=== PATIENT | male | born 1990 ===

== ENCOUNTER 2017-01-07 18:16 | Emergency (ER) | payer OTHER ==
[2017-01-07 18:25] VITALS: BP 122/83
[2017-01-07] MEDS ORDERED: Ibuprofen TAB* 600 MG PO ONE (18:50)
--- NOTE | 2017-01-07 18:50 | UC ---
UC Dental HPI - HPI Summary HPI Summary: pain and swelling left wisdom tooth--- - History of Current Complaint Chief Complaint: UCDentalProblem Stated Complaint: INFECTED MOUTH Time Seen by Provider: 01/07/17 18:44 Hx Obtained From: Patient Onset/Duration: Sudden Onset, Lasting Days - 2, Still Present Severity: Moderate Pain Intensity: 8 Pain Scale Used: 0-10 Numeric - 8 Aggravating: Chewing Alleviating: Nothing Related History: Swelling - Allergies/Home Medications Allergies/Adverse Reactions: Allergies Allergy/AdvReac Type Severity Reaction Status Date / Time No Known Allergies Allergy Verified 01/07/17 18:25 Home Medications: Home Medications Ibuprofen TAB* [Advil TAB*] 1 cap PO TID 01/07/17 [History Confirmed 01/07/17] PMH/Surg Hx/FS Hx/Imm Hx Previously Healthy: Yes - Surgical History Surgical History: None - Family History Known Family History: Positive: None - Social History Occupation: Employed Full-time Lives: With Family Alcohol Use: Occasionally Substance Use Type: None Smoking Status (MU): Never Smoked Tobacco Review of Systems Constitutional: Negative Skin: Negative Eyes: Negative ENT: Dental Pain - left bottom 3rd molar Respiratory: Negative Cardiovascular: Negative Gastrointestinal: Negative Genitourinary: Negative Motor: Negative Neurovascular: Negative Musculoskeletal: Negative Neurological: Negative Psychological: Negative All Other Systems Reviewed And Are Negative: Yes Physical Exam Triage Information Reviewed: Yes Appearance: Well-Appearing, Well-Nourished, Pain Distress Vital Signs: Initial Vital Signs Temp 97.9 F 01/07/17 18:20 Pulse 67 01/07/17 18:20 Resp 18 01/07/17 18:20 BP 122/83 01/07/17 18:20 Pulse Ox 99 01/07/17 18:20 Vital Signs Reviewed: Yes Eye Exam: Normal Eyes: Positive: Conjunctiva Clear ENT Exam: Normal ENT: Positive: Normal ENT inspection, Hearing grossly normal, Pharynx normal, TMs normal. Negative: Nasal congestion, Nasal drainage, Trismus, Muffled/ hoarse voice Dental Exam: Normal Dental: Positive: Percussion Tenderness @ - left lower 3rd molar, Abscess @ Neck exam: Normal Neck: Positive: Supple Respiratory Exam: Normal Respiratory: Positive: Chest non-tender, No respiratory distress, No accessory muscle use Cardiovascular Exam: Normal Cardiovascular: Positive: RRR, Pulses Normal, Brisk Capillary Refill Musculoskeletal Exam: Normal Musculoskeletal: Positive: Strength Intact, ROM Intact Neurological Exam: Normal Neurological: Positive: Alert, Muscle Tone Normal Psychological Exam: Normal Skin Exam: Normal Dental Complaint Course/Dx - Course Course Of Treatment: ibuprofen, tylenol, topical analgesic, follow with dentist - Differential Dx/Diagnosis Differential Diagnosis/Dx: Dental Abscess, Fractured Tooth, Odontogenic Pain, Pharyngitis Provider Diagnoses: left lower dental pain Discharge - Discharge Plan Condition: Stable Disposition: HOME Prescriptions: Amoxicillin PO (*) [Amoxicillin 500 MG CAP*] 500 mg PO TID #29 cap Ibuprofen TAB* [Motrin TAB* 600 MG] 600 mg PO Q6H PRN #30 tab PRN Reason: Pain Patient Education Materials: Dental Abscess (ED), Toothache (ED) Referrals: No Primary Care Phys,NOPCP [Primary Care Provider] - Additional Instructions: Follow with you dentist when you return home or return here if needed
[2017-01-07] MEDS ORDERED: Amoxicillin PO (*) 500 MG CAP PO ONE (18:51)
== END 2017-01-07 19:13 | disposition home or self-care (01) ==
LOC: UCEAST 18:16
DX: K08.89 Other specified disorders of teeth and supporting structures (principal)
CPT/HCPCS: 99202; A9270-GY; G0463

== ENCOUNTER 2017-01-08 07:42 | Emergency (ER) | payer OTHER ==
[2017-01-08 07:50] VITALS: BP 117/78
[2017-01-08] MEDS ORDERED: Amoxicillin/Clavulanate TAB* 875 MG PO ONE (08:19)
[2017-01-08] MEDS ORDERED: predniSONE TAB* 20 MG PO ONE (08:19)
[2017-01-08] MEDS ORDERED: Acetaminop/Codeine 30 MG TAB* 1 TAB (300 MG/30 MG) PO ONE (08:19)
--- NOTE | 2017-01-08 14:10 | UC ---
Kenny Garcia SooYoung, scribed for Patricia Ward DO on 01/08/17 at 0801 . Dental HPI - HPI Summary HPI Summary: A 26 y/o M presents to [facility] [place] with c/o dental abscess of L bottom wisdom tooth onset 3 days ago. Associated sx: swelling onset this AM, mild dysphagia. Denies nausea, abd pain, dizziness, dyspnea, swelling of lips/tongue/throat, rash. Rates pain as 5/10 in room. Pt was seen last night at [facility] and given an ABX. He has yet to fill the Rx. Pt and friend were concerned after he woke up and it was swollen today and he was having difficulty opening his mouth. 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 - Onset/Duration: Gradual Onset, Lasting Days, Still Present Severity: Moderate Pain Intensity: 5 Pain Scale Used: 0-10 Numeric Aggravating: Chewing Alleviating: Nothing Related History: Swelling - Allergies/Home Medications Allergies/Adverse Reactions: Allergies Allergy/AdvReac Type Severity Reaction Status Date / Time No Known Allergies Allergy Verified 01/08/17 07:50 PMH/Surg Hx/FS Hx/Imm Hx Previously Healthy: Yes Cardiovascular History: Other Other Cardiovascular History: neg: HTN Respiratory History: Other Other Respiratory History: neg: COPD - Surgical History Surgical History: None - Family History Known Family History: Positive: None Negative: Cardiac Disease, Hypertension, Diabetes - Social History Occupation: Unemployed Lives: Alone Alcohol Use: Occasionally Substance Use Type: None Smoking Status (MU): Never Smoked Tobacco Review of Systems Constitutional: Negative Skin: Negative Eyes: Negative ENT: Dental Pain - with swelling, Other - PT HAD MILD ST A COUPLE OF DAYS AGO THAT RESOLVED Respiratory: Negative Cardiovascular: Negative Gastrointestinal: Negative Genitourinary: Negative Motor: Negative Neurovascular: Negative Musculoskeletal: Negative Neurological: Negative Psychological: Negative All Other Systems Reviewed And Are Negative: Yes Physical Exam Triage Information Reviewed: Yes Appearance: Well-Appearing, No Pain Distress, Well-Nourished Vital Signs: Initial Vital Signs Pulse 84 01/08/17 07:43 Resp 20 01/08/17 07:43 BP 117/78 01/08/17 07:43 Pulse Ox 99 01/08/17 07:43 Vital Signs Reviewed: Yes Eyes: Positive: Conjunctiva Clear. Negative: Discharge ENT: Positive: Hearing grossly normal, Trismus, Other: - tissues under midline chin sofft supple, neg for erythma, neg for calor. Negative: Muffled/hoarse voice Dental: Positive: Other: - swelling over mandible over the L lower wisdom tooth , no drainage, dental abscess palpated over 17 Neck exam: Normal Neck: Positive: Supple, No Lymphadenopathy, Other: - no midline swelling over the mandible Respiratory: Positive: Lungs clear, Normal breath sounds, No respiratory distress, No accessory muscle use Cardiovascular: Positive: RRR, No Murmur Musculoskeletal Exam: Normal Neurological: Positive: Alert, Muscle Tone Normal Psychological Exam: Normal Psychological: Positive: Age Appropriate Behavior Skin Exam: Normal - warm, dry, nml Dental Complaint Course/Dx - Course Course Of Treatment: Medications reviewed. Normal BP reading and no follow-up instructions required. Discussed at length with pt and on how and when to take the prescriptions. Pt declined pain medication at [facility] [place], will pick-up as Rx. D/C home with Tylenol/Codeine, Augmentin and Prednisone. - Differential Dx/Diagnosis Differential Diagnosis/Dx: Dental Abscess, Dental Caries, TMJ Syndrome Provider Diagnoses: dental abscess Discharge - Discharge Plan Condition: Stable Disposition: HOME Prescriptions: Acetaminop/Codeine 30 MG TAB* [Tylenol/Codeine 30 MG TAB*] 1 tab PO Q6H PRN #12 tab MDD 4 tabs PRN Reason: Pain (Dental) Amoxicillin/Clavulanate TAB* [Augmentin TAB 875*] 875 mg PO BID #19 tab predniSONE TAB* [Deltasone TAB*] 40 mg PO DAILY #8 tab Patient Education Materials: Dental Abscess (ED) Referrals: No Primary Care Phys,NOPCP [Primary Care Provider] - [facility] [Outside] Additional Instructions: AUGMENTIN: Augmentin is a mixture of amoxicillin and clavulanate. Amoxicillin is a member of the penicillin family. It covers the germs likely to cause ear, bronchial, and urinary infections better than plain penicillin. The addition of clavulanate allows it to cover staph infections of the skin, as well as resistant cases of ear and sinus infections. Your physician has chosen Augmentin for you because of the special nature of your situation. Augmentin is best taken with meals. Nausea after taking the medication is rare, but can occur. Diarrhea can occur, particularly in small children. Vaginal yeast infections, and oral thrush in infants are also common. Contact your physician if these problems occur. Allergy to penicillins is common. If you have had an allergic reaction to any drug of the penicillin family, you should never take any other penicillin. Notify your doctor at once if you develop hives, shortness of breath, swelling, or faintness. ANYTIME YOU TAKE AN ANTIBIOTIC, IT IS IMPORTANT TO REPLENISH THE BODY'S SUPPLY OF "GOOD BACTERIA." YOU CAN GET GOOD BACTERIA FROM HIGH QUALITY CULTURED FOODS SUCH LOCAL YOGURT, SOUR KRAUT, ARIELLE CHELI, NATURALLY FERMENTED PICKLES AND PROBIOTIC DRINKS. YOU CAN ALSO GET GOOD BACTERIA FROM A PROBIOTIC SUPPLEMENT. CORTICOSTEROID MEDICATION: You have been given a medicine of the cortisone class. This medication is used to control inflammation or allergy. It is usually only given for a short period of time, until the acute process subsides. There are usually no side effects from short-term use of cortisone-like medications. Some persons feel an increased sense of well-being and are not sleepy at bedtime. Long-term use of cortisone medications is best avoided, unless required for a severe condition. If your condition does not remit, or relapses after the course of corticosteroid medication, you should consult your physician. Contact the physician if you develop lightheadedness, black or tarry stools , swelling of the legs, or significant rapid change in weight. ACETAMINOPHEN WITH CODEINE: You have been given a prescription for acetaminophen with codeine for pain control. Codeine is a narcotic. It is best taken with food, as nausea can result if taken on an empty stomach. Don't operate machinery or drive within six hours of taking this medication. Do not combine this medication with alcohol, or with any sedative type medicine such as cold tablets or sleeping pills unless your doctor gives permission. Narcotics tend to cause constipation. It's best to get plenty of fluids, fiber, and fruits. YOU WILL NEED TO FOLLOW UP WITH A DENTIST. PLEASE CALL YOUR DENTIST TO MAKE AN APPOINTMENT TO BE SEEN SOON POSSIBLE. Return to Urgent Care if you have any new or worsening symptoms. You should establish with a private physician for follow-up care. If you are unable to get a timely appointment, or if you are worsening, call us or return for re-evaluation. An additional resource available to assist in finding the appropriate physician for your health care needs is the Physician Referral Center. You may contact them by calling [phone]. The documentation as recorded by the Kenny hollis SooYoung accurately reflects the service I personally performed and the decisions made by me, Patricia Ward DO.
== END 2017-01-08 08:38 | disposition home or self-care (01) ==
LOC: UCEAST 07:42
DX: K04.7 Periapical abscess without sinus (principal)
CPT/HCPCS: 99212; A9270-GY; G0463; J7512